=== PATIENT | male | born 1960 | race Caucasian/White ===

== ENCOUNTER 2017-12-12 08:19 | Outpatient (CLI) | payer BC ==
[2017-12-12 10:52] LABS: ALBUMIN 4.2 g/dL (3.2-5.5); ALBUMIN/GLOBULIN RATIO 1.4 (1.0-2.2); ALKALINE PHOSPHATASE 50 IU/L (42-121); ALT ALANINE AMINOTRANSFERASE 29 IU/L (10-60); AST ASPARTATE AMINOTRANSFERASE 25 IU/L (10-42); BILIRUBIN,TOTAL 0.6 mg/dL (0.2-1.0); BUN - BLOOD UREA NITROGEN 16 mg/dL (6-20); CALCIUM 8.9 mg/dL (8.5-10.3); CARBON DIOXIDE - CO2 23 mmol/L (21-32); CHLORIDE 106 mmol/L (101-111); CHOLESTEROL 177 mg/dL; CREATININE 0.9 mg/dL (0.6-1.2); GFR - MDRD 86 (>89); GLUCOSE 110 mg/dL (70-100); HDL CHOLESTEROL 44 mg/dL; LDL CHOLESTEROL,CALCULATED 109 mg/dL; LDL/HDL RATIO 2.5 (<3.6); SODIUM 137 mmol/L (135-145); TOTAL PROTEIN 7.3 g/dL (6.7-8.2); VLDL CHOLESTEROL 24 mg/dL
== END 2017-12-12 08:20 | disposition home or self-care (01) ==
LOC: LAB.F 08:19
PROVIDERS: ATTEND Internal Medicine
DX: E88.81 Metabolic syndrome and other insulin resistance (principal); I10 Essential (primary) hypertension
CPT/HCPCS: 36415; 80053; 80061; 83721; 84443

== ENCOUNTER 2018-01-29 09:53 | Outpatient (CLI) | payer BC | END 2018-01-29 09:54 | disposition home or self-care (01) | LOC: SC 09:53 | PROVIDERS: ATTEND Nurse Practitioner Family | DX: G47.10 Hypersomnia, unspecified (principal); R06.83 Snoring; R53.83 Other fatigue; E88.81 Metabolic syndrome and other insulin resistance; I10 Essential (primary) hypertension | CPT/HCPCS: 99204; 99212 ==

== ENCOUNTER 2018-03-24 09:53 | Outpatient (CLI) | payer BC | END 2018-03-24 09:54 | disposition home or self-care (01) | LOC: SC 09:53 | PROVIDERS: ATTEND Internal Medicine Pulmonary Disease | DX: G47.33 Obstructive sleep apnea (adult) (pediatric) (principal) | CPT/HCPCS: 99212; 99213 ==

== ENCOUNTER 2018-05-21 11:12 | Outpatient (CLI) | payer OTHER | END 2018-05-21 11:13 | disposition home or self-care (01) | LOC: SC 11:12 | PROVIDERS: ATTEND Nurse Practitioner Family | DX: G47.33 Obstructive sleep apnea (adult) (pediatric) (principal) | CPT/HCPCS: 99212; 99214 ==